=== PATIENT | male | born 1960 | race Caucasian/White ===

== ENCOUNTER 2022-09-30 09:30 | Inpatient (IN) | payer BC ==
[2022-09-30] MEDS ORDERED: Aspirin Chewable 81 MG TAB ONE (10:41)
[2022-09-30 11:30] LABS: Bilirubin Negative (Negative); Blood, Urine Negative (Negative); Clarity Clear (Clear); Glucose, Urine (Dipstick) Normal (Negative); Ketone, Urine Negative (Negative); Leukocyte Negative Leu/uL (Negative); Nitrite Negative (Negative); Protein, Urine (Dipstick) Negative (Neg-Trace); Urobilinogen Normal mg/dL (Less than 2)
[2022-09-30 12:12] LABS: #Eosinphils 0.1 thou/uL (0.0-0.7); #Lymphocytes 1.5 thou/uL (1.20-3.40); #Monocytes 0.3 thou/uL (0.11-0.59); #Neutrophils 3.6 thou/uL (1.40-6.50); %Basophils 0.3 % (0.0-1.0); %Eosinophils 1.8 % (0.0-10.0); %Lymphocytes 26.8 % (21.0-51.0); %Monocytes 5.6 % (0.0-10.0); %Neutrophils 65.5 % (42.0-75.0); Hemoglobin 13.6 g/dL (14.0-18.0); Mean Corpuscular HGB CONC 35.6 g/dL (32.0-36.0); Mean Corpuscular Hemoglobin 31.8 pg (27.0-31.0); Mean Corpuscular Volume 89.4 fl (78.0-98.0); Mean Platelet Volume 7.4 fL (7.4-10.4); Platelet Count 206 10x3/uL (130-400); RBC Distribution Width 12.3 % (11.5-14.5); Red Blood Cell (RBC) Count 4.26 mill/uL (4.70-6.10); White Blood Cell (WBC) Count 5.4 10x3/uL (4.8-10.8)
[2022-09-30 12:34] LABS: ALT (SGPT) 30 U/L (8-55); AST (SGOT) 21 U/L (5-34); Albumin 4.1 g/dL (3.4-4.8); Alkaline Phosphatase 47 U/L (40-110); Anion Gap 11 mmol/L (10-20); BUN (Urea Nitrogen) 15 mg/dL (8.4-25.7); Bilirubin, Total 0.7 mg/dL (0.2-1.2); Calc. Creatinine Clearance 0 mL/min (70-130); Calcium 9.2 mg/dL (7.8-10.44); Carbon Dioxide 26 mmol/L (23-31); Chloride 106 mmol/L (98-107); Estimated GFR 106; Globulin 2.4 g/dL (2.4-3.5); Glucose 100 mg/dL (80-115); Lipase 28 U/L (8-78); Potassium 3.7 mmol/L (3.5-5.1); Protein, Total 6.5 g/dL (5.8-8.1); Sodium 139 mmol/L (136-145)
[2022-09-30] MEDS ORDERED: Nitroglycerin 0.4 MG TAB (25 Tab Bottle) SL PRN (13:23)
[2022-09-30 14:46] VITALS: BMI 32.3
[2022-09-30] MEDS ORDERED: traMADol HCl 50 MG TAB PO PRN (15:51)
[2022-09-30] MEDS ORDERED: Acetaminophen 325 MG TAB PO PRN (15:55)
[2022-09-30 17:01] LABS: Troponin I Less than 0.010 ng/mL (< 0.028)
[2022-09-30] MEDS ORDERED: Fenofibrate Nanocrystallized 145 MG TAB PO SCH (21:00)
[2022-10-01 05:39] LABS: #Eosinphils 0.2 thou/uL (0.0-0.7); #Lymphocytes 1.5 thou/uL (1.20-3.40); #Monocytes 0.4 thou/uL (0.11-0.59); #Neutrophils 2.9 thou/uL (1.40-6.50); %Basophils 0.2 % (0.0-1.0); %Lymphocytes 29.9 % (21.0-51.0); %Monocytes 7.7 % (0.0-10.0); %Neutrophils 58.2 % (42.0-75.0); Hemoglobin 13.5 g/dL (14.0-18.0); Mean Corpuscular HGB CONC 34.5 g/dL (32.0-36.0); Mean Corpuscular Hemoglobin 30.9 pg (27.0-31.0); Mean Corpuscular Volume 89.6 fl (78.0-98.0); Platelet Count 204 10x3/uL (130-400); RBC Distribution Width 12.3 % (11.5-14.5); Red Blood Cell (RBC) Count 4.37 mill/uL (4.70-6.10)
[2022-10-01 05:59] LABS: Anion Gap 12 mmol/L (10-20); BUN (Urea Nitrogen) 14 mg/dL (8.4-25.7); Calc. Creatinine Clearance 165 mL/min (70-130); Calcium 8.9 mg/dL (7.8-10.44); Carbon Dioxide 24 mmol/L (23-31); Cardiac Risk 5.3 (Less than 4.5); Chloride 105 mmol/L (98-107); Cholesterol 138 mg/dl (< 200 Desired); Estimated GFR 104; Glucose 108 mg/dL (80-115); HDL Cholesterol 26 mg/dL (>60 Neg Risk); LDL Cholesterol, Calculated 86 mg/dL; Potassium 3.7 mmol/L (3.5-5.1); Sodium 137 mmol/L (136-145); Triglycerides 130 mg/dL (Less than 150)
[2022-10-01] MEDS ORDERED: ADENOSINE 60 MG/20 ML SDV ONE (10:04)
[2022-10-01] MEDS: Losartan 25 MG TAB PO SCH (11:45)
[2022-10-01] MEDS: Aspirin Chewable 81 MG TAB PO SCH (11:46)
[2022-10-01] MEDS ORDERED: Communication Order-Pharmacy FS SCH (15:30)
[2022-10-01] MEDS: Atorvastatin Calcium 40 MG TAB PO SCH (20:32)
[2022-10-02] MEDS ORDERED: Sodium Chloride 0.9% 1,000 ML IV SCH (06:00)
[2022-10-02] MEDS: Aspirin Chewable 81 MG TAB PO SCH (06:03)
[2022-10-02] MEDS: Losartan 25 MG TAB PO SCH (06:04)
[2022-10-02] MEDS ORDERED: Heparin 10,000 UNITS/ 10 ML VIAL ONE (07:28)
[2022-10-02] MEDS ORDERED: Lidocaine 1% (PF) 30 ML VIAL ONE (07:28)
[2022-10-02] MEDS ORDERED: FENTANYL 50 MCG/ML 1 ML VIAL ONE ×3 (08:29→09:05)
[2022-10-02] MEDS ORDERED: Midazolam HCl 2 mg/2 ml Vial ONE (08:29)
[2022-10-02] MEDS ORDERED: Sodium Chloride 0.9% 200 ML IV PRN (09:59)
[2022-10-02] MEDS ORDERED: Acetaminophen/Codeine 30-300mg Tablet PO PRN (09:59)
[2022-10-02] MEDS ORDERED: Nitroglycerin 0.4 MG TAB (25 Tab Bottle) SL PRN (09:59)
[2022-10-02] MEDS ORDERED: Iopamidol 370 76% 100 ML VIAL ONE (11:21)
[2022-10-02] MEDS ORDERED: Communication Order-Pharmacy FS SCH (12:47)
[2022-10-02] MEDS ORDERED: Diazepam 5 MG TAB PO PRN (12:47)
[2022-10-02] MEDS: Metoprolol Tartrate 25 MG TAB PO SCH (19:50)
[2022-10-02] MEDS: Atorvastatin Calcium 40 MG TAB PO SCH (19:50)
[2022-10-03 05:08] LABS: Hemoglobin 13.7 g/dL (14.0-18.0); Mean Corpuscular HGB CONC 35.8 g/dL (32.0-36.0); Mean Corpuscular Volume 89.5 fl (78.0-98.0); Mean Platelet Volume 7.1 fL (7.4-10.4); Platelet Count 203 10x3/uL (130-400); RBC Distribution Width 12.3 % (11.5-14.5); Red Blood Cell (RBC) Count 4.26 mill/uL (4.70-6.10); White Blood Cell (WBC) Count 5.7 10x3/uL (4.8-10.8)
[2022-10-03] MEDS: Metoprolol Tartrate 25 MG TAB PO SCH (05:13)
[2022-10-03 05:31] LABS: Anion Gap 14 mmol/L (10-20); BUN (Urea Nitrogen) 12 mg/dL (8.4-25.7); Calc. Creatinine Clearance 168 mL/min (70-130); Carbon Dioxide 21 mmol/L (23-31); Chloride 109 mmol/L (98-107); Estimated GFR 105; Glucose 105 mg/dL (80-115); Potassium 3.8 mmol/L (3.5-5.1); Sodium 140 mmol/L (136-145)
[2022-10-03] MEDS ORDERED: Lidocaine 1% MPF 2 ML VIAL ONE (06:00)
[2022-10-03] MEDS ORDERED: Dexamethasone 4 mg/ml Vial ONE (06:46)
[2022-10-03] MEDS ORDERED: Albumin 5% 500 ML ONE (06:47)
[2022-10-03] MEDS ORDERED: Bupivacaine HCl 0.5%/Epinephrine 1:200,000/PF 30 ml Vial ONE (06:47)
[2022-10-03] MEDS ORDERED: Rocuronium Bromide 50 MG/5 ML VIAL ONE (06:53)
[2022-10-03] MEDS ORDERED: Fentanyl 250 MCG/5 ML VIAL ONE (06:53)
[2022-10-03] MEDS ORDERED: Midazolam HCl 5 mg/5 ml Vial ONE (06:53)
[2022-10-03] MEDS ORDERED: CEFAZOLIN 2 GM in Sodium Chloride 0.9% 100 ML IVPB SCH (07:00)
[2022-10-03] MEDS ORDERED: CEFAZOLIN 2 GM VIAL ONE (07:09)
[2022-10-03] MEDS ORDERED: Sodium Chloride 0.9% 100 ML ONE (07:09)
[2022-10-03] MEDS ORDERED: Magnesium 5 GM/10 ML VIAL ONE (07:34)
[2022-10-03] MEDS ORDERED: ePHEDrine 50 MG/ML VIAL ONE (07:34)
[2022-10-03] MEDS ORDERED: Thrombin 5000 UNITS/5 ML VIAL ONE (07:34)
[2022-10-03] MEDS ORDERED: Potassium Chloride 60 MEQ/30 ML VIAL ONE (07:34)
[2022-10-03] MEDS ORDERED: Heparin 5,000 UNITS/ML VIAL ONE (07:34)
[2022-10-03] MEDS ORDERED: Mannitol 12.5 GM/50 ML ONE (07:34)
[2022-10-03] MEDS ORDERED: Rocuronium Bromide 10 MG/ML (10ML VIAL) ONE (07:34)
[2022-10-03] MEDS ORDERED: Papaverine 60 MG/2 ML VIAL ONE (07:34)
[2022-10-03] MEDS ORDERED: Ondansetron PF 4 MG/2 ML Vial ONE (07:34)
[2022-10-03] MEDS ORDERED: Vancomycin 1 GM VIAL ONE (07:34)
[2022-10-03] MEDS ORDERED: PROPOFOL 200 MG/20 ML VIAL ONE (07:34)
[2022-10-03] MEDS ORDERED: Sodium Bicarb 50 MEQ/50 ML VIAL ONE (07:34)
[2022-10-03] MEDS ORDERED: Protamine Sulfate 250 MG/25 ML VIAL ONE (07:34)
[2022-10-03] MEDS ORDERED: Heparin 30,000 units/30 ml VIAL ONE (07:34)
[2022-10-03] MEDS ORDERED: Calcium Chloride 1 GM/10 ML Abboject SYRINGE ONE (07:34)
[2022-10-03] MEDS ORDERED: Labetalol HCl 100 MG/20 ML VIAL ONE (07:34)
[2022-10-03] MEDS ORDERED: Cardioplegic Soln 1,000 ML BAG ONE (07:34)
[2022-10-03] MEDS ORDERED: Aminocaproic Acid 5 GM/20 ML VIAL ONE (07:34)
[2022-10-03] MEDS ORDERED: Lidocaine 2% PF 100 mg/5 ml Syringe ONE (07:34)
[2022-10-03] MEDS ORDERED: Heparin 10,000 UNITS/ 10 ML VIAL ONE (08:26)
[2022-10-03] MEDS ORDERED: PHENYLEPHRINE-NS 100 MCG/ML 10 ML SYRINGE ONE (08:26)
[2022-10-03] MEDS ORDERED: Insulin Regular 300 UNITS/3 ML VIAL ONE (09:44)
[2022-10-03] MEDS ORDERED: Fentanyl 100 MCG/2 ML VIAL SLOW IVP PRN ×2 (10:20)
[2022-10-03] MEDS ORDERED: hydrALAZINE 20 MG/ML VIAL SLOW IVP PRN (10:20)
[2022-10-03] MEDS ORDERED: Potassium Chloride 20 MEQ in Lactated Ringer's 1,000 ML IV SCH (10:20)
[2022-10-03] MEDS ORDERED: Bisacodyl 10 MG SUPP PR PRN (10:20)
[2022-10-03] MEDS ORDERED: Promethazine HCl 25 MG/ML VIAL IM PRN (10:20)
[2022-10-03] MEDS ORDERED: niCARdipine 25 MG in Sodium Chloride 0.9% 250 ML 250 ML IVPB PRN (10:20)
[2022-10-03] MEDS ORDERED: Post-Op Insulin Drip Protocol IVPB SCH (10:20)
[2022-10-03] MEDS ORDERED: Bisacodyl 5 MG TAB PO PRN (10:20)
[2022-10-03] MEDS ORDERED: Hetastarch 6% 500 ML 500 ML IVPB PRN (10:20)
[2022-10-03] MEDS ORDERED: Ipratropium/Albuterol 3 ML NEB NEB PRN (10:20)
[2022-10-03] MEDS ORDERED: Morphine 2 MG/ML VIAL SLOW IVP PRN (10:20)
[2022-10-03] MEDS ORDERED: Guaifenesin DM 100-10/5 ML UDCUP PO PRN (10:20)
[2022-10-03] MEDS ORDERED: NOREPINEPHRINE 8 MG/250 ML-D5W 250 ML IVPB PRN (10:20)
[2022-10-03 10:58] LABS: Actual Bicarbonate (HCO3a) 22.4 mEq/L (22-28); Base Excess (BEa) -3.3 mEq/L (-2.0 to +3.0); CO2 Tension 42.7 mmHg (35.0-45.0); Calcium, Ionized (arterial) 1.12 mmol/L (1.12-1.30); Carboxyhemoglobin (COHb) 0.3 gm% (0.0-3.0); Hemoglobin (Hb) 11.7 g/dL (14.0-18.0); O2 Tension (PaO2), arterial 103.9 mmHg (> 80.0); Potassium - ABG Lab 3.94 mmol/L (3.70-5.30); pH, Arterial 7.34 (7.35-7.45)
[2022-10-03 11:00] LABS: ALV-art Gradient 270.525 mmHg (0-20); Puncture Site Arterial Line
[2022-10-03] MEDS ORDERED: Dextrose 5% in Water 1,000 ML IV PRN (11:00)
[2022-10-03] MEDS ORDERED: Insulin Regular 300 UNITS/3 ML VIAL SC PRN (11:00)
[2022-10-03] MEDS ORDERED: Dextrose 50% Abboject 50 ML SYRINGE SLOW IVP PRN (11:00)
[2022-10-03] MEDS ORDERED: HUMULIN R 100 UNITS in Sodium Chloride 0.9% 100 ML IVPB SCH (11:00)
[2022-10-03] MEDS ORDERED: FENTANYL 50 MCG/ML 1 ML VIAL SLOW IVP PRN (11:11)
[2022-10-03 11:26] LABS: #Eosinphils 0.1 thou/uL (0.0-0.7); #Lymphocytes 1.8 thou/uL (1.20-3.40); #Monocytes 0.9 thou/uL (0.11-0.59); #Neutrophils 14.1 thou/uL (1.40-6.50); %Basophils 0.1 % (0.0-1.0); %Eosinophils 0.8 % (0.0-10.0); %Lymphocytes 10.8 % (21.0-51.0); %Neutrophils 83.3 % (42.0-75.0); Hemoglobin 11.4 g/dL (14.0-18.0); Mean Corpuscular HGB CONC 35.6 g/dL (32.0-36.0); Mean Corpuscular Hemoglobin 32.2 pg (27.0-31.0); Mean Corpuscular Volume 90.4 fl (78.0-98.0); Mean Platelet Volume 6.7 fL (7.4-10.4); Platelet Count 257 10x3/uL (130-400); RBC Distribution Width 12.2 % (11.5-14.5); Red Blood Cell (RBC) Count 3.55 mill/uL (4.70-6.10); White Blood Cell (WBC) Count 16.9 10x3/uL (4.8-10.8)
[2022-10-03 11:36] LABS: INR-International Normal Ratio 1.3; PTT 29.8 sec (22.9-36.1); Prothrombin Time 16.7 sec (12.0-14.7)
[2022-10-03 11:37] LABS: Anion Gap 10 mmol/L (10-20); BUN (Urea Nitrogen) 12 mg/dL (8.4-25.7); Calc. Creatinine Clearance 170 mL/min (70-130); Calcium 7.9 mg/dL (7.8-10.44); Carbon Dioxide 22 mmol/L (23-31); Chloride 113 mmol/L (98-107); Estimated GFR 105; Glucose 161 mg/dL (80-115); Sodium 141 mmol/L (136-145)
[2022-10-03] MEDS: Ketorolac Tromethamine 30 MG/ML VIAL IVP SCH ×3 (12:15→23:26)
[2022-10-03] MEDS: Potassium Chloride 20 MEQ/100 ML PREMIX BAG IVPB PRN ×2 (12:19→18:18)
[2022-10-03] MEDS: FENTANYL 50 MCG/ML 1 ML VIAL SLOW IVP PRN ×5 (13:28→22:06)
[2022-10-03] MEDS: CEFAZOLIN 2 GM in Sodium Chloride 0.9% 100 ML IVPB SCH ×2 (16:21→23:27)
[2022-10-03 16:37] LABS: Hemoglobin 12.8 g/dL (14.0-18.0)
[2022-10-03] MEDS ORDERED: guaiFENesin 200 MG TAB PO PRN (17:04)
[2022-10-03] MEDS: Ondansetron PF 4 MG/2 ML Vial IVP PRN (17:15)
[2022-10-03] MEDS: Aspirin Chewable 81 MG TAB PO SCH (18:53)
[2022-10-03] MEDS ORDERED: Simvastatin 40 MG TAB PO SCH (21:00)
[2022-10-03] MEDS ORDERED: Atorvastatin Calcium 20 MG TAB PO SCH (21:00)
[2022-10-03] MEDS ORDERED: Famotidine/PF 20 mg/2ml Vial SLOW IVP SCH (21:00)
[2022-10-03] MEDS: Cyclobenzaprine 10 MG TAB PO PRN (23:26)
[2022-10-04] MEDS: traMADol HCl 50 MG TAB PO PRN ×3 (03:20→22:12)
[2022-10-04 04:15] LABS: #Lymphocytes 1.7 thou/uL (1.20-3.40); #Neutrophils 8.1 thou/uL (1.40-6.50); %Eosinophils 0.2 % (0.0-10.0); %Lymphocytes 15.9 % (21.0-51.0); %Monocytes 8.9 % (0.0-10.0); Hemoglobin 12.6 g/dL (14.0-18.0); Mean Corpuscular Hemoglobin 31.6 pg (27.0-31.0); Mean Corpuscular Volume 90.2 fl (78.0-98.0); Mean Platelet Volume 7.5 fL (7.4-10.4); Platelet Count 205 10x3/uL (130-400); RBC Distribution Width 12.5 % (11.5-14.5); Red Blood Cell (RBC) Count 3.98 mill/uL (4.70-6.10); White Blood Cell (WBC) Count 10.7 10x3/uL (4.8-10.8)
[2022-10-04 04:36] LABS: Anion Gap 13 mmol/L (10-20); BUN (Urea Nitrogen) 15 mg/dL (8.4-25.7); Calc. Creatinine Clearance 163 mL/min (70-130); Calcium 8.5 mg/dL (7.8-10.44); Carbon Dioxide 22 mmol/L (23-31); Chloride 112 mmol/L (98-107); Estimated GFR 104; Glucose 112 mg/dL (80-115); Potassium 3.7 mmol/L (3.5-5.1); Sodium 143 mmol/L (136-145)
[2022-10-04] MEDS: Ondansetron PF 4 MG/2 ML Vial IVP PRN (04:47)
[2022-10-04] MEDS: Ketorolac Tromethamine 30 MG/ML VIAL IVP SCH ×3 (05:42→17:50)
[2022-10-04] MEDS: CEFAZOLIN 2 GM in Sodium Chloride 0.9% 100 ML IVPB SCH (07:16)
[2022-10-04] MEDS: Potassium Chloride 20 MEQ/100 ML PREMIX BAG IVPB PRN (07:16)
[2022-10-04] MEDS ORDERED: Simethicone Chewable 80 MG TAB PO PRN (08:28)
[2022-10-04] MEDS: Acetaminophen 325 MG TAB PO PRN (08:45)
[2022-10-04] MEDS: Aspirin 325 MG TAB PO SCH (08:46)
[2022-10-04] MEDS: Metoprolol Tartrate 25 MG TAB PO SCH ×2 (08:46→20:08)
[2022-10-04] MEDS: Magnesium 2 GM/50 ML(in water) 2 GM in Premix Bag 1 BAG IVPB SCH (08:46)
[2022-10-04] MEDS: FENTANYL 50 MCG/ML 1 ML VIAL SLOW IVP PRN ×2 (08:53→23:05)
[2022-10-04] MEDS ORDERED: Insulin Glargine 30 UNITS/0.3 ML VIAL SC PRN (10:52)
[2022-10-04] MEDS ORDERED: Dextrose 50% Abboject 50 ML SYRINGE SLOW IVP PRN (13:29)
[2022-10-04] MEDS ORDERED: HumaLOG 300 UNITS/3 ML VIAL SC PRN (13:29)
[2022-10-04] MEDS ORDERED: Dextrose 5% in Water 1,000 ML IV PRN (13:29)
[2022-10-04] MEDS ORDERED: Metoclopramide HCl 10 MG/2 ML VIAL IVP SCH (13:30)
[2022-10-04] MEDS: Metoclopramide HCl 10 MG/2 ML VIAL IVP SCH (17:51)
[2022-10-04] MEDS: Atorvastatin Calcium 40 MG TAB PO SCH (20:07)
[2022-10-04] MEDS: Cyclobenzaprine 10 MG TAB PO PRN (20:30)
[2022-10-05] MEDS: Ketorolac Tromethamine 30 MG/ML VIAL IVP SCH ×4 (00:08→17:43)
[2022-10-05] MEDS: Metoclopramide HCl 10 MG/2 ML VIAL IVP SCH ×3 (06:48→17:43)
[2022-10-05] MEDS: Magnesium 2 GM/50 ML(in water) 2 GM in Premix Bag 1 BAG IVPB SCH (09:02)
[2022-10-05] MEDS: Aspirin 325 MG TAB PO SCH (09:07)
[2022-10-05] MEDS: Polyethylene Glycol 3350 17 GM Packet PO SCH (09:07)
[2022-10-05] MEDS: Metoprolol Tartrate 25 MG TAB PO SCH ×2 (09:07→21:01)
[2022-10-05 09:16] LABS: #Eosinphils 0.1 thou/uL (0.0-0.7); #Lymphocytes 2.4 thou/uL (1.20-3.40); #Monocytes 0.8 thou/uL (0.11-0.59); #Neutrophils 7.9 thou/uL (1.40-6.50); %Basophils 0.1 % (0.0-1.0); %Eosinophils 0.8 % (0.0-10.0); %Lymphocytes 21.7 % (21.0-51.0); %Monocytes 7.1 % (0.0-10.0); %Neutrophils 70.3 % (42.0-75.0); Hemoglobin 11.7 g/dL (14.0-18.0); Mean Corpuscular HGB CONC 34.4 g/dL (32.0-36.0); Mean Corpuscular Volume 90.1 fl (78.0-98.0); Mean Platelet Volume 6.9 fL (7.4-10.4); Platelet Count 245 10x3/uL (130-400); RBC Distribution Width 12.5 % (11.5-14.5); Red Blood Cell (RBC) Count 3.77 mill/uL (4.70-6.10); White Blood Cell (WBC) Count 11.2 10x3/uL (4.8-10.8)
[2022-10-05 09:38] LABS: Anion Gap 11 mmol/L (10-20); BUN (Urea Nitrogen) 22 mg/dL (8.4-25.7); Calc. Creatinine Clearance 145 mL/min (70-130); Calcium 8.6 mg/dL (7.8-10.44); Carbon Dioxide 24 mmol/L (23-31); Chloride 106 mmol/L (98-107); Estimated GFR 102; Glucose 126 mg/dL (80-115); Potassium 3.8 mmol/L (3.5-5.1); Sodium 137 mmol/L (136-145)
[2022-10-05] MEDS ORDERED: Zolpidem Tartrate 5 MG TAB PO PRN (12:59)
[2022-10-05] MEDS ORDERED: Milk Of Magnesia 30 ML UDCUP PO PRN (12:59)
[2022-10-05] MEDS ORDERED: Guaifenesin DM 100-10/5 ML UDCUP PO PRN (12:59)
[2022-10-05] MEDS ORDERED: Mineral Oil ENEMA PR PRN (12:59)
[2022-10-05] MEDS ORDERED: diphenhydrAMINE 25 MG CAP PO PRN (12:59)
[2022-10-05] MEDS ORDERED: Nitroglycerin 0.4 MG TAB (25 Tab Bottle) SL PRN (12:59)
[2022-10-05] MEDS: Acetaminophen 325 MG TAB PO PRN (13:42)
[2022-10-05] MEDS ORDERED: Diltiazem 125 MG in Sodium Chloride 0.9% 100 ML IVPB SCH (19:00)
[2022-10-05] MEDS ORDERED: Diltiazem HCl 125 MG, Admixture Fee 1 EACH in Sodium Chloride 0.9% 100 ML IVPB SCH (19:15)
[2022-10-05] MEDS: Atorvastatin Calcium 40 MG TAB PO SCH (21:01)
[2022-10-05] MEDS: Cyclobenzaprine 10 MG TAB PO PRN (21:14)
[2022-10-06] MEDS: Ketorolac Tromethamine 30 MG/ML VIAL IVP SCH ×3 (00:01→12:05)
[2022-10-06] MEDS ORDERED: Metoprolol Tartrate 5 MG/5 ML VIAL IVP SCH ×2 (00:30→09:00)
[2022-10-06] MEDS ORDERED: Digoxin 0.5 MG/2 ML AMP SLOW IVP SCH (01:45)
[2022-10-06] MEDS ORDERED: Diltiazem 125 MG in Sodium Chloride 0.9% 100 ML IVPB SCH ×2 (02:45→10:15)
[2022-10-06] MEDS: Metoclopramide HCl 10 MG/2 ML VIAL IVP SCH ×3 (06:37→17:02)
[2022-10-06] MEDS: Aspirin 325 MG TAB PO SCH (08:45)
[2022-10-06] MEDS: Metoprolol Tartrate 25 MG TAB PO SCH (08:46)
[2022-10-06] MEDS: Polyethylene Glycol 3350 17 GM Packet PO SCH (08:46)
[2022-10-06] MEDS: Acetaminophen 325 MG TAB PO PRN ×2 (08:50→21:01)
[2022-10-06] MEDS ORDERED: Metoprolol Tartrate 50 MG TAB PO SCH (09:00)
[2022-10-06] MEDS ORDERED: Metoprolol Tartrate 25 MG TAB PO SCH ×2 (09:02→10:00)
[2022-10-06] MEDS: Dronedarone HCl 400 MG TAB PO SCH (16:22)
[2022-10-06] MEDS: traMADol HCl 50 MG TAB PO PRN (17:26)
[2022-10-06] MEDS: Metoprolol Tartrate 50 MG TAB PO SCH (21:00)
[2022-10-06] MEDS: Atorvastatin Calcium 40 MG TAB PO SCH (21:00)
[2022-10-07] MEDS: traMADol HCl 50 MG TAB PO PRN ×2 (02:15→20:19)
[2022-10-07] MEDS: Metoclopramide HCl 10 MG/2 ML VIAL IVP SCH ×3 (06:50→17:08)
[2022-10-07] MEDS: Acetaminophen 325 MG TAB PO PRN ×2 (07:52→18:01)
[2022-10-07] MEDS: Aspirin 325 MG TAB PO SCH (07:53)
[2022-10-07] MEDS: Metoprolol Tartrate 50 MG TAB PO SCH ×2 (07:53→20:20)
[2022-10-07] MEDS: Dronedarone HCl 400 MG TAB PO SCH ×2 (07:53→16:02)
[2022-10-07] MEDS: Polyethylene Glycol 3350 17 GM Packet PO SCH (07:53)
[2022-10-07 09:07] LABS: Actual Bicarbonate (HCO3a) 20.8 mEq/L (22-28); Analyzer IN Cardio OR; Base Excess (BEa) -5.8 mEq/L (-2.0 to +3.0); CO2 Tension 45.4 mmHg (35.0-45.0); Carboxyhemoglobin (COHb) 0.1 gm% (0.0-3.0); Hemoglobin (Hb) 10.2 g/dL (14.0-18.0); O2 Tension (PaO2), arterial 367.8 mmHg (> 80.0); Potassium - ABG Lab 4.55 mmol/L (3.70-5.30); pH, Arterial 7.28 (7.35-7.45)
[2022-10-07 09:07] LABS: Actual Bicarbonate (HCO3a) 21.1 mEq/L (22-28); Analyzer IN Cardio OR; Base Excess (BEa) -4.8 mEq/L (-2.0 to +3.0); CO2 Tension 42.3 mmHg (35.0-45.0); Calcium, Ionized (arterial) 1.15 mmol/L (1.12-1.30); Carboxyhemoglobin (COHb) 0.9 gm% (0.0-3.0); O2 Tension (PaO2), arterial 313.9 mmHg (> 80.0); Potassium - ABG Lab 3.84 mmol/L (3.70-5.30); pH, Arterial 7.32 (7.35-7.45)
[2022-10-07 09:07] LABS: Actual Bicarbonate (HCO3a) 20.8 mEq/L (22-28); Analyzer IN Cardio OR; Base Excess (BEa) -4.8 mEq/L (-2.0 to +3.0); CO2 Tension 40.5 mmHg (35.0-45.0); Calcium, Ionized (arterial) 1.16 mmol/L (1.12-1.30); Carboxyhemoglobin (COHb) 0.7 gm% (0.0-3.0); Hemoglobin (Hb) 13.1 g/dL (14.0-18.0); O2 Tension (PaO2), arterial 298.6 mmHg (> 80.0); Potassium - ABG Lab 3.66 mmol/L (3.70-5.30); pH, Arterial 7.33 (7.35-7.45)
[2022-10-07 09:07] LABS: Actual Bicarbonate (HCO3v) 25 mEq/L (22-28); Analyzer IN Cardio OR; Calcium, Ionized (venous) 1.09 mmol/L (1.16-1.32); Chloride (VBG) 108 mmol/L (98-106); Hemoglobin (Hb) 10.3 g/dL (13.1-17.2); Potassium (VBG) 4.57 mmol/L (3.70-5.30); Sodium 136.3 mmol/L (133-146); pH (venous) 7.25 (7.32-7.43)
[2022-10-07 09:08] LABS: Actual Bicarbonate (HCO3a) 21.6 mEq/L (22-28); Analyzer IN Cardio OR; Base Excess (BEa) -4.7 mEq/L (-2.0 to +3.0); CO2 Tension 45.8 mmHg (35.0-45.0); Calcium, Ionized (arterial) 1.07 mmol/L (1.12-1.30); Carboxyhemoglobin (COHb) 0.3 gm% (0.0-3.0); Hemoglobin (Hb) 9.6 g/dL (14.0-18.0); O2 Tension (PaO2), arterial 383.4 mmHg (> 80.0); Potassium - ABG Lab 4.49 mmol/L (3.70-5.30); pH, Arterial 7.29 (7.35-7.45)
[2022-10-07 09:08] LABS: Actual Bicarbonate (HCO3a) 23.2 mEq/L (22-28); Analyzer IN Cardio OR; Base Excess (BEa) -2.9 mEq/L (-2.0 to +3.0); CO2 Tension 45.9 mmHg (35.0-45.0); Calcium, Ionized (arterial) 1.15 mmol/L (1.12-1.30); Carboxyhemoglobin (COHb) 0.3 gm% (0.0-3.0); Hemoglobin (Hb) 9.8 g/dL (14.0-18.0); O2 Tension (PaO2), arterial 234.5 mmHg (> 80.0); Potassium - ABG Lab 3.79 mmol/L (3.70-5.30); pH, Arterial 7.32 (7.35-7.45)
[2022-10-07 09:09] LABS: Actual Bicarbonate (HCO3a) 22.9 mEq/L (22-28); Analyzer IN Cardio OR; Base Excess (BEa) -3.6 mEq/L (-2.0 to +3.0); CO2 Tension 47.4 mmHg (35.0-45.0); Calcium, Ionized (arterial) 1.14 mmol/L (1.12-1.30); Carboxyhemoglobin (COHb) 0.7 gm% (0.0-3.0); Hemoglobin (Hb) 11.2 g/dL (14.0-18.0); O2 Tension (PaO2), arterial 216.9 mmHg (> 80.0); Potassium - ABG Lab 3.78 mmol/L (3.70-5.30)
[2022-10-07 09:09] LABS: Puncture Site Arterial Line
[2022-10-07 09:10] LABS: Puncture Site Arterial Line
[2022-10-07 09:10] LABS: Puncture Site Arterial Line
[2022-10-07 09:11] LABS: Puncture Site Arterial Line
[2022-10-07 09:11] LABS: Puncture Site Arterial Line
[2022-10-07 09:11] LABS: Puncture Site Arterial Line
[2022-10-07] MEDS: Atorvastatin Calcium 40 MG TAB PO SCH (20:20)
[2022-10-07] MEDS ORDERED: Metoprolol Tartrate 5 MG/5 ML VIAL IVP SCH (23:45)
[2022-10-08] MEDS ORDERED: Metoprolol Tartrate 5 MG/5 ML VIAL IVP SCH ×2 (00:38→03:15)
[2022-10-08] MEDS: traMADol HCl 50 MG TAB PO PRN ×3 (02:53→18:35)
[2022-10-08] MEDS ORDERED: Electrolyte Replacement Protocol 1 EACH FS SCH (04:00)
[2022-10-08] MEDS ORDERED: Diltiazem 125 MG in Sodium Chloride 0.9% 100 ML IVPB SCH (04:00)
[2022-10-08 05:11] LABS: Anion Gap 11 mmol/L (10-20); BUN (Urea Nitrogen) 13 mg/dL (8.4-25.7); Calc. Creatinine Clearance 163 mL/min (70-130); Calcium 8.6 mg/dL (7.8-10.44); Carbon Dioxide 23 mmol/L (23-31); Chloride 105 mmol/L (98-107); Estimated GFR 104; Glucose 103 mg/dL (80-115); Magnesium 1.8 mg/dL (1.6-2.6); Sodium 135 mmol/L (136-145)
[2022-10-08] MEDS: Metoclopramide HCl 10 MG/2 ML VIAL IVP SCH ×3 (06:43→17:14)
[2022-10-08] MEDS ORDERED: Magnesium 2 GM/50 ML(in water) 2 GM in Premix Bag 1 BAG IVPB SCH (08:00)
[2022-10-08] MEDS: Aspirin 325 MG TAB PO SCH (08:24)
[2022-10-08] MEDS: Dronedarone HCl 400 MG TAB PO SCH ×2 (08:24→16:38)
[2022-10-08] MEDS: Polyethylene Glycol 3350 17 GM Packet PO SCH (08:25)
[2022-10-08] MEDS: Cyclobenzaprine 10 MG TAB PO PRN (21:03)
[2022-10-08] MEDS: Atorvastatin Calcium 40 MG TAB PO SCH (21:03)
[2022-10-09] MEDS: traMADol HCl 50 MG TAB PO PRN ×3 (01:30→18:19)
[2022-10-09] MEDS: Metoclopramide HCl 10 MG/2 ML VIAL IVP SCH ×3 (05:59→17:03)
[2022-10-09] MEDS: Dronedarone HCl 400 MG TAB PO SCH ×2 (08:13→17:03)
[2022-10-09] MEDS: Aspirin 325 MG TAB PO SCH (08:13)
[2022-10-09] MEDS: Polyethylene Glycol 3350 17 GM Packet PO SCH (08:13)
[2022-10-09] MEDS: Acetaminophen 325 MG TAB PO PRN (15:29)
[2022-10-09] MEDS: Atorvastatin Calcium 40 MG TAB PO SCH (20:27)
[2022-10-09] MEDS ORDERED: Sodium Chloride 0.9% 500 ML IV SCH (21:45)
[2022-10-09] MEDS: Cyclobenzaprine 10 MG TAB PO PRN (23:55)
[2022-10-10 04:47] LABS: Hemoglobin 11.4 g/dL (14.0-18.0); Mean Corpuscular HGB CONC 34.8 g/dL (32.0-36.0); Mean Corpuscular Hemoglobin 31.6 pg (27.0-31.0); Mean Corpuscular Volume 90.9 fl (78.0-98.0); Mean Platelet Volume 7.2 fL (7.4-10.4); Platelet Count 288 10x3/uL (130-400); RBC Distribution Width 12.5 % (11.5-14.5); White Blood Cell (WBC) Count 7.9 10x3/uL (4.8-10.8)
[2022-10-10 05:09] LABS: Anion Gap 14 mmol/L (10-20); BUN (Urea Nitrogen) 11 mg/dL (8.4-25.7); Calc. Creatinine Clearance 153 mL/min (70-130); Calcium 8.8 mg/dL (7.8-10.44); Carbon Dioxide 21 mmol/L (23-31); Chloride 103 mmol/L (98-107); Estimated GFR 103; Glucose 94 mg/dL (80-115); Magnesium 1.8 mg/dL (1.6-2.6); Potassium 3.7 mmol/L (3.5-5.1); Sodium 134 mmol/L (136-145)
[2022-10-10] MEDS: Metoclopramide HCl 10 MG/2 ML VIAL IVP SCH ×3 (05:24→18:02)
[2022-10-10] MEDS: traMADol HCl 50 MG TAB PO PRN (07:27)
[2022-10-10] MEDS ORDERED: Magnesium 2 GM/50 ML(in water) 2 GM in Premix Bag 1 BAG IVPB SCH (08:00)
[2022-10-10] MEDS: Aspirin 325 MG TAB PO SCH (09:27)
[2022-10-10] MEDS: Polyethylene Glycol 3350 17 GM Packet PO SCH (09:27)
[2022-10-10] MEDS: Dronedarone HCl 400 MG TAB PO SCH ×2 (09:27→18:01)
[2022-10-10] MEDS ORDERED: Isoproterenol 0.2 MG/1 ML AMP ONE (09:42)
[2022-10-10] MEDS ORDERED: Lidocaine 1% (PF) 30 ML VIAL ONE (09:42)
[2022-10-10] MEDS ORDERED: Protamine Sulfate 50 MG/5 ML VIAL ONE (09:42)
[2022-10-10] MEDS ORDERED: Heparin 10,000 UNITS/ 10 ML VIAL ONE (09:42)
[2022-10-10] MEDS ORDERED: Heparin 25,000 units/D5W 0 ML ONE (09:42)
[2022-10-10] MEDS ORDERED: Midazolam HCl 2 mg/2 ml Vial ONE (10:40)
[2022-10-10] MEDS ORDERED: FENTANYL 50 MCG/ML 1 ML VIAL ONE (10:44)
[2022-10-10] MEDS ORDERED: DOPamine 400 MG/D5W 250 ML 250 ML ONE (10:48)
[2022-10-10] MEDS ORDERED: Glycopyrrolate 0.2 MG/ML 5 ML SYRINGE ONE (11:25)
[2022-10-10] MEDS ORDERED: Dexamethasone 20 MG/5 ML VIAL ONE (11:25)
[2022-10-10] MEDS ORDERED: Lidocaine 1% PF 5 ML VIAL ONE (11:25)
[2022-10-10] MEDS ORDERED: NEOSTIGMINE 3 MG/3 ML SYR 3 MG/3 ML SYRINGE ONE (11:25)
[2022-10-10] MEDS ORDERED: Ondansetron PF 4 MG/2 ML Vial ONE (11:25)
[2022-10-10] MEDS ORDERED: Rocuronium Bromide 10 MG/ML (10ML VIAL) ONE (11:25)
[2022-10-10] MEDS ORDERED: PROPOFOL 200 MG/20 ML VIAL ONE (11:25)
[2022-10-10] MEDS ORDERED: Phenylephrine 10 MG/ML VIAL ONE (11:25)
[2022-10-10] MEDS ORDERED: Amiodarone 200 MG TAB PO SCH (17:45)
[2022-10-10] MEDS: Atorvastatin Calcium 40 MG TAB PO SCH (21:39)
[2022-10-10] MEDS: Amiodarone 200 MG TAB PO SCH (21:39)
[2022-10-10] MEDS: Cyclobenzaprine 10 MG TAB PO PRN (23:11)
[2022-10-10] MEDS: Mag-Al 1200 mg/1200 mg/30 ML UDCUP PO PRN (23:59)
[2022-10-11] MEDS: Metoclopramide HCl 10 MG/2 ML VIAL IVP SCH ×3 (06:30→16:28)
[2022-10-11] MEDS: Aspirin 325 MG TAB PO SCH (09:24)
[2022-10-11] MEDS: Amiodarone 200 MG TAB PO SCH ×3 (09:24→20:59)
[2022-10-11] MEDS: Polyethylene Glycol 3350 17 GM Packet PO SCH (09:25)
[2022-10-11] MEDS: traMADol HCl 50 MG TAB PO PRN ×2 (14:33→21:50)
[2022-10-11] MEDS: Atorvastatin Calcium 40 MG TAB PO SCH (20:59)
[2022-10-12] MEDS: Cyclobenzaprine 10 MG TAB PO PRN (01:08)
[2022-10-12 05:28] LABS: Anion Gap 14 mmol/L (10-20); BUN (Urea Nitrogen) 13 mg/dL (8.4-25.7); Calc. Creatinine Clearance 158 mL/min (70-130); Calcium 8.5 mg/dL (7.8-10.44); Carbon Dioxide 21 mmol/L (23-31); Chloride 104 mmol/L (98-107); Estimated GFR 103; Glucose 105 mg/dL (80-115); Magnesium 1.8 mg/dL (1.6-2.6); Potassium 3.6 mmol/L (3.5-5.1); Sodium 135 mmol/L (136-145)
[2022-10-12] MEDS: Metoclopramide HCl 10 MG/2 ML VIAL IVP SCH (06:23)
[2022-10-12] MEDS ORDERED: Magnesium 2 GM/50 ML(in water) 2 GM in Premix Bag 1 BAG IVPB SCH (08:00)
[2022-10-12] MEDS: Amiodarone 200 MG TAB PO SCH ×3 (09:50→20:29)
[2022-10-12] MEDS: Polyethylene Glycol 3350 17 GM Packet PO SCH (09:51)
[2022-10-12] MEDS: Aspirin 325 MG TAB PO SCH (09:51)
[2022-10-12] MEDS: traMADol HCl 50 MG TAB PO PRN (20:29)
[2022-10-12] MEDS: Atorvastatin Calcium 40 MG TAB PO SCH (20:29)
[2022-10-12] MEDS: Mag-Al 1200 mg/1200 mg/30 ML UDCUP PO PRN (20:33)
[2022-10-13] MEDS ORDERED: Calcium Carbonate 500 MG ChewTAB PO PRN (03:51)
[2022-10-13] MEDS: Acetaminophen 325 MG TAB PO PRN (06:08)
[2022-10-13] MEDS: Amiodarone 200 MG TAB PO SCH ×3 (09:01→20:14)
[2022-10-13] MEDS: Aspirin 325 MG TAB PO SCH (09:02)
[2022-10-13] MEDS: Polyethylene Glycol 3350 17 GM Packet PO SCH (09:02)
[2022-10-13] MEDS ORDERED: traMADol HCl 50 MG TAB PO PRN ×2 (12:40→12:41)
[2022-10-13] MEDS: Atorvastatin Calcium 40 MG TAB PO SCH (20:14)
[2022-10-13] MEDS: Mag-Al 1200 mg/1200 mg/30 ML UDCUP PO PRN (20:14)
[2022-10-13] MEDS: Cyclobenzaprine 10 MG TAB PO PRN (23:42)
[2022-10-14 04:35] LABS: Hemoglobin 9.8 g/dL (14.0-18.0); Mean Corpuscular Hemoglobin 30.6 pg (27.0-31.0); Mean Platelet Volume 7.1 fL (7.4-10.4); Platelet Count 318 10x3/uL (130-400); RBC Distribution Width 12.7 % (11.5-14.5); Red Blood Cell (RBC) Count 3.21 mill/uL (4.70-6.10); White Blood Cell (WBC) Count 7.4 10x3/uL (4.8-10.8)
[2022-10-14 05:12] LABS: Anion Gap 12 mmol/L (10-20); BUN (Urea Nitrogen) 10 mg/dL (8.4-25.7); Calc. Creatinine Clearance 174 mL/min (70-130); Calcium 8.5 mg/dL (7.8-10.44); Carbon Dioxide 22 mmol/L (23-31); Chloride 103 mmol/L (98-107); Estimated GFR 106; Glucose 105 mg/dL (80-115); Potassium 3.8 mmol/L (3.5-5.1); Sodium 133 mmol/L (136-145)
[2022-10-14] MEDS: Amiodarone 200 MG TAB PO SCH (08:23)
[2022-10-14] MEDS: Aspirin 325 MG TAB PO SCH (08:23)
[2022-10-14] MEDS: Polyethylene Glycol 3350 17 GM Packet PO SCH (08:23)
[2022-10-14 13:10] VITALS: BP 155/81; TEMP 98.1
[2022-10-14] MEDS ORDERED: Amiodarone 200 MG TAB PO SCH ×2 (21:00)
== END 2022-10-14 14:55 | disposition home or self-care (01) | DRG 234 ==
LOC: ERS 09:30 → 2SW 13:13 → OBSVTOIN 10-01 12:17 → CCU 10-03 06:05 → 2NO 10-05 10:24
PROVIDERS: ADMIT Hospitalist; ATTEND Internal Medicine
PROC: 4A023N7 Measurement of Cardiac Sampling and Pressure, Left Heart, Percutaneous Approach (ICD-10-PCS; principal; 2022-10-02)
PROC: B2011ZZ Plain Radiography of Multiple Coronary Arteries using Low Osmolar Contrast (ICD-10-PCS; 2022-10-02)
PROC: B2051ZZ Plain Radiography of Left Heart using Low Osmolar Contrast (ICD-10-PCS; 2022-10-02)
PROC: 02100Z9 Bypass Coronary Artery, One Artery from Left Internal Mammary, Open Approach (ICD-10-PCS; 2022-10-03)
PROC: 021109W Bypass Coronary Artery, Two Arteries from Aorta with Autologous Venous Tissue, Open Approach (ICD-10-PCS; 2022-10-03)
PROC: 06BQ4ZZ Excision of Left Saphenous Vein, Percutaneous Endoscopic Approach (ICD-10-PCS; 2022-10-03)
PROC: 5A1221Z Performance of Cardiac Output, Continuous (ICD-10-PCS; 2022-10-03)
PROC: 02L70ZK Occlusion of Left Atrial Appendage, Open Approach (ICD-10-PCS; 2022-10-03)
PROC: 02583ZZ Destruction of Conduction Mechanism, Percutaneous Approach (ICD-10-PCS; 2022-10-10)
PROC: 02K83ZZ Map Conduction Mechanism, Percutaneous Approach (ICD-10-PCS; 2022-10-10)
PROC: 4A023FZ Measurement of Cardiac Rhythm, Percutaneous Approach (ICD-10-PCS; 2022-10-10)
PROC: 4A0234Z Measurement of Cardiac Electrical Activity, Percutaneous Approach (ICD-10-PCS; 2022-10-10)
DX: I25.10 Atherosclerotic heart disease of native coronary artery without angina pectoris (principal); I48.3 Typical atrial flutter; Z20.822 Contact with and (suspected) exposure to COVID-19; I10 Essential (primary) hypertension; E11.9 Type 2 diabetes mellitus without complications; K21.9 Gastro-esophageal reflux disease without esophagitis; G89.29 Other chronic pain; E78.1 Pure hyperglyceridemia; G47.33 Obstructive sleep apnea (adult) (pediatric); M62.838 Other muscle spasm; I48.0 Paroxysmal atrial fibrillation; Z87.891 Personal history of nicotine dependence; Z88.2 Allergy status to sulfonamides; Z79.899 Other long term (current) drug therapy; Z99.89 Dependence on other enabling machines and devices
CPT/HCPCS: 36415; 36416; 71045; 78452; 80048; 80053; 80061; 81003; 82805; 83036; 83690; 83735; 83880; 84484; 85025; 85027; 85610; 85730; 86850; 86900; 86901; 93005; 93010; 93017; 93306; 93458; 93459; 93623; 93653; 93798; 93970; 94003; 97139; 99152; 99153; A9500; C1713; C1730; C1732; C1751; C1760; C1769; C1776; C1887; C1894; G0378; J0153; J0360; J1100; J1160; J1265; J1642; J1644; J1815; J1885; J2001; J2150; J2250; J2272; J2370; J2405; J2440; J2704; J2720; J2765; J3010; J3370; J3475; J3480; J3490; J7030; J7050; J7120; P9045; Q9967; S0017; S0028; U0003; U0005